=== PATIENT | female | born 1985 | race Caucasian/White ===

== ENCOUNTER 2019-12-09 09:22 | Day surgery (SDC) | payer BC ==
[~2019-12-09] VITALS: Ht 167.6 cm; Wt 122.7 kg
[2019-12-09 09:33] VITALS: BP 164/88
[2019-12-09] MEDS ORDERED: fentaNYL/PF 50MCG/1 ML 2ML syringe ONE (09:56)
[2019-12-09] MEDS ORDERED: MIDAZolam 5mg/5ml vial ONE (09:57)
[2019-12-09] MEDS ORDERED: BUPR150T8 PO (09:59)
[2019-12-09 10:18] VITALS: BP 146/89
[2019-12-09 10:28] VITALS: BP 140/66
[2019-12-09 10:38] VITALS: BP 143/84
[2019-12-09 10:48] VITALS: BP 143/81
== END 2019-12-09 11:00 | disposition home or self-care (01) ==
LOC: GI LAB 09:22
PROVIDERS: ATTEND Internal Medicine Gastroenterology
DX: K62.5 Hemorrhage of anus and rectum (principal); K64.0 First degree hemorrhoids; Z80.0 Family history of malignant neoplasm of digestive organs
CPT/HCPCS: 45378; 99152; J2250; J3010; J7040; A4620